=== PATIENT | female | born 1965 | race Caucasian/White ===

== ENCOUNTER → 2020-09-03 | Outpatient (CLI) | payer MEDICARE ==
[2020-09-03 14:08] LABS: HEMOGLOBIN 10.9 gm/dl (12.3-15.3); RED BLOOD COUNT 4.53 M/UL (4.00-5.10)
[2020-09-05 11:14] LABS: CHOLESTEROL, TOTAL 148 mg/dL (100-199); HDL SIZE 8.4 nm (>=9.2); HDL-C 31 mg/dL (>39); HDL-P (TOTAL) 20.2 umol/L (>=30.5); LARGE HDL-P 1.5 umol/L (>=4.8); LARGE VLDL-P 2.5 nmol/L (<=2.7); LDL SIZE 21.4 nm (>20.5); LDL SIZE 21.4 nm (>=20.8); LDL-C 99 mg/dL (0-99); LDL-P 877 nmol/L (<1000); LP-IR SCORE 49 (<=45); SMALL LDL-P <90 nmol/L (<=527); TRIGLYCERIDES 98 mg/dL (0-149); VLDL SIZE 43.9 nm (<=46.6)
== END ==
LOC: LAB 12:44
PROVIDERS: Emergency Medicine
DX: Z00.01 Encounter for general adult medical examination with abnormal findings (principal); D64.9 Anemia, unspecified; M15.8 Other polyosteoarthritis; F41.1 Generalized anxiety disorder; I10 Essential (primary) hypertension; R53.83 Other fatigue
CPT/HCPCS: 36415; 80053; 80061; 82728; 83540; 83550; 83704; 84443; 85025

== ENCOUNTER → 2020-09-26 | Outpatient (CLI) | payer MEDICARE ==
[2020-09-27 07:11] LABS: VITAMIN D, 25-HYDROXY 50.1 ng/mL (30.0-100.0)
[2020-09-27 08:14] LABS: COMPLEMENT C3, SERUM 137 mg/dL (82-167); COMPLEMENT C4, SERUM 19 mg/dL (12-38); HBSAG SCREEN Negative (Negative); HCV AB <0.1 (0.0-0.9); HEP B CORE AB, TOT Negative (Negative); RHEUMATOID ARTHRITIS FACTOR 10.4 IU/mL (0.0-13.9)
[2020-09-28 00:09] LABS: CCP ANTIBODIES IGG/IGA 8 units (0-19)
[2020-09-29 19:09] LABS: QUANTIFERON MITOGEN VALUE >10.00 IU/mL (.); QUANTIFERON NIL VALUE 0.03 IU/mL (.); QUANTIFERON TB1 AG VALUE 0.02 IU/mL (.); QUANTIFERON TB2 AG VALUE 0.04 IU/mL (.); QUANTIFERON-TB GOLD PLUS Negative (Negative)
== END ==
LOC: LAB 09:56
PROVIDERS: Nurse Practitioner Family
DX: Z11.59 Encounter for screening for other viral diseases (principal); D89.9 Disorder involving the immune mechanism, unspecified; M25.50 Pain in unspecified joint; R76.8 Other specified abnormal immunological findings in serum; M79.7 Fibromyalgia; R53.83 Other fatigue; Z79.899 Other long term (current) drug therapy; Z87.898 Personal history of other specified conditions
CPT/HCPCS: 36415; 73120; 81001; 82550; 82570; 83520; 84156; 86140; 86160; 86200; 86431; 86704; 86803; 87340

== ENCOUNTER → 2021-07-17 | Outpatient (CLI) | payer MEDICARE ==
[2021-07-17 14:54] LABS: RED BLOOD COUNT 4.56 M/UL (4.00-5.10); WHITE BLOOD COUNT 5.1 K/UL (4.5-11.0)
[2021-07-19 11:15] LABS: CHOLESTEROL, TOTAL 143 mg/dL (100-199); HDL SIZE 8.3 nm (>=9.2); HDL-C 29 mg/dL (>39); HDL-P (TOTAL) 19.1 umol/L (>=30.5); LARGE HDL-P <1.3 umol/L (>=4.8); LARGE VLDL-P 5.5 nmol/L (<=2.7); LDL SIZE 21.4 nm (>20.5); LDL SIZE 21.4 nm (>=20.8); LDL-C 91 mg/dL (0-99); LDL-P 827 nmol/L (<1000); LP-IR SCORE 66 (<=45); SMALL LDL-P 191 nmol/L (<=527); TRIGLYCERIDES 129 mg/dL (0-149); VLDL SIZE 47.9 nm (<=46.6)
== END ==
LOC: LAB 13:46
PROVIDERS: Emergency Medicine
DX: I10 Essential (primary) hypertension (principal); D50.8 Other iron deficiency anemias; M62.81 Muscle weakness (generalized)
CPT/HCPCS: 36415; 80053; 80061; 83704; 84443; 84550; 85025